=== PATIENT | male | born 1975 | race Two or more races ===

== ENCOUNTER 2019-05-08 10:00 | Outpatient (AMBR) | payer MEDICARE, MEDICAID, SELFPAY ==
--- NOTE | 2019-05-05 08:12 | PT.OIERPT ---
PT OP Initial Eval Patient Information Visit Reasons: left shoulder pain Medical Diagnosis: M25.512 Treatment Dx #1: Left Shoulder Pain Treatment Dx #2: Left Shoulder Weakness Start of Care: 05/05/19 Date of Onset: 04/21/18 Initial Assessment Subjective Pt is a 44 y/o male c/o chronic left shoulder pain (810) since his shoulder replacement 04/21/18. Pt has been to physical therapy previously, however, unable to complete due to attending rehab facility. Pt still has limitation with overhead motions, lifting, self care, reaching to the side, reaching behind back, cooking, cleaning, and performing recreational activities. 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 Pt will attempt physical therapy if pain persist Pt will be refer back to PCP. Short Term and Senior Living Goals 1) Increase left shoulder flexion AROM to 150 deg in 3 wks to be able to perform overhead motions 2) Increase left shoulder MMTs grossly to 3+/5 in 3 wks to be able to perform self care activities 3) Increase left scapula MMTs grossly to 3+/5 in 3 wks to be able to perform lifting activities 4) Decrease shoulder pain to 2/10 in 3 wks to be able to perform recreational activities 5) Indep with HEP Treatment Plan 1) Manual Therapy 2) Therapeutic Activities 3) Therapeutic Exercises 4) Modalities (ice, heat) Frequency and Duration 2 x wk for 3 wks Certification Dates: 05/05/19 to 08/03/19 Office Procedures PT Procedures PT Date of Service: 05/05/19 OP PT Eval Mod Complex 30 minutes: Yes
--- NOTE | 2019-05-08 11:43 | PT.ODAYNRPT ---
PT Outpatient Daily Note Date of Service: May 08, 2019 OP Daily Note Visit Reasons: left shoulder pain Outpatient Physical Therapy Treatment Date: 05/08/19 Subjective: pt states his shoulder is in pain but tolerable. pt is leaving to [place] for a few weeks but plans on returning to PT. Objective: see flow sheet. Assessment: pt demonstrated good mobility of the shoulder although he has pain. the exercises did not seem to bother him as he did not c/o increased pain. observed L UT elevation with shoulder flexion as he compensates to increase ROM. he has OH motion during pulleys with good pace indicating little to no pain. Plan: continue POC per PT. Length of Time (minutes) of Treatment: 30 Minutes ORACLE EBS CONSULTANT Service Modifier Method I: Divide the number of min of care provided by the ORACLE EBS CONSULTANT/MOHAN by the total min of care provided then multiply by 100. If greater than 11 percent modifier is required. Method II: Divide the total time of care provided to patient by 10 (round to the nearest whole number) and add 1 min. to set the minimum time requirement. If treatment total was 60 min., then 10% of 6 min Did ORACLE EBS CONSULTANT provide more than 10% of the care?: Yes PT CQ modifier applied: CQ Modifier applied Office Procedures PT Procedures PT Date of Service: 05/05/19 OP PT Eval Mod Complex 30 minutes: Yes PT Procedures PT Date of Service: 05/08/19 Therapeutic Exercise 30 minutes: Yes
== END 2019-05-09 23:59 | disposition home or self-care (01) ==
PROVIDERS: PCP Family Medicine; Referring Provider Family Medicine; Visit Provider Physician Assistant
DX: Z47.1 Aftercare following joint replacement surgery (principal); Z96.612 Presence of left artificial shoulder joint; M25.512 Pain in left shoulder; R53.1 Weakness; G89.29 Other chronic pain
CPT/HCPCS: 97110; 97162

== ENCOUNTER 2019-08-04 09:41 | Outpatient (AMBR) | payer MEDICARE, MEDICAID, SELFPAY ==
--- NOTE | 2019-08-04 15:13 | PTNOTE_ITS ---
PT OP Initial Eval Patient Information Visit Reasons: post op right shoulder Medical Diagnosis: Right Shoulder Pain; Right Shoulder Replacement Treatment Dx #1: Right Shoulder Mobility Deficits Treatment Dx #2: Right Shoulder Weakness Start of Care: 08/04/19 Date of Onset: 07/17/19 Initial Assessment Subjective Pt is a 44 y/o male s/p right shoulder replacement 07/17/19 secondary to OA. Pt still has pain (8/10) with all activities. Pt has limitation with overhead motions, lifting, chores, self care, dressing, cooking, cleaning, and performing recreational activities. Pt further stated that since his shoulder surgery he develop rashes around his face. Pt's PCP is aware of the rash and has given him medication as treatment. Objective Right Shoulder AROM Flexion: 60 deg Abduction: 45 deg ER and IR: unable Right Shoulder PROM Flexion: 90 deg Abduction: 90 deg ER and IR: unable due to pain Right Shoulder MMTs: grossly 3-/5 Right Scapula MMTs: grossly 3-/5 Assessment Pt demonstrate right shoulder mobility and strength deficits s/p shoulder replacement surgery leading to decline function. Pt will benefit from physical therapy to increase strength, mobility, and work on ROM. Short Term and Forensic Dna Analyst Goals 1) Increase right shoulder AROM WFL in 12 wks to be able to perform overhead motions 2) Increase right shoulder MMTs grossly to 4-/5 in 12 wks to be able to perform self care activities 3) Increase right scapula MMTs grossly to 3+/5 in 12 wks to be able to perform chores 4) Decrease shoulder pain to 2/10 in 12 wks to be able to ride his bike 5) Indep with HEP Treatment Plan 1) Manual Therapy 2) Therapeutic Activities 3) Therapeutic Exercises 4) Modalities (ice, heat) Frequency and Duration 2 x wk for 12 wks Certification Dates: 08/04/19 to 11/04/19 Office Procedures PT Procedures PT Date of Service: 08/04/19 OP PT Eval Mod Complex 30 minutes: Yes
--- NOTE | 2019-08-06 08:37 | PT.ODAYNRPT ---
PT Outpatient Daily Note Date of Service: 08/06/19 OP Daily Note Visit Reasons: post op right shoulder Outpatient Physical Therapy Treatment Date: 08/06/19 Subjective: Pt's shoulder is sore and tender. Pt still has limitation with self care activities Objective: Please see flow chart for list of ther ex performed Assessment: tolerate exercises cue to ensure patient to count correct reps Plan: Continue with PT Length of Time (minutes) of Treatment: 30 Minutes Office Procedures PT Procedures PT Date of Service: 08/04/19 OP PT Eval Mod Complex 30 minutes: Yes PT Procedures PT Date of Service: 08/06/19 Therapeutic Exercise 30 minutes: Yes
== END 2019-08-09 23:59 | disposition home or self-care (01) ==
PROVIDERS: Referring Provider Physician Assistant; Visit Provider Orthopaedic Surgery Sports Medicine
DX: Z47.1 Aftercare following joint replacement surgery (principal); Z96.611 Presence of right artificial shoulder joint; R53.1 Weakness; M25.511 Pain in right shoulder
CPT/HCPCS: 97110; 97162

== ENCOUNTER 2019-10-15 07:59 | Outpatient (AMBR) | payer MEDICARE, MEDICAID, SELFPAY ==
--- NOTE | 2019-10-15 11:05 | PTNOTE_ITS ---
PT OP Progress/Discharge Note Date of Service: 10/15/19 Progress Note/DC Note Progress Note/Discharge Note: Progress Note Patient Information Visit Reasons: POST OP Medical Diagnosis: Right Shoulder Pain; Right Shoulder Replacement Treatment Dx #1: Right Shoulder Mobility Deficits Treatment Dx #2: Right Shoulder Weakness Service Continue Service or Discharge: Continue Service Certification Date Certification Dates: 10/15/19 to 01/15/20 Status Subjective: Pt mention that his shoulder still hurts but movement is a little b hannah. Pt notice that self care, dressing, light lifting, and performing chores is getting easier. Pt still has difficulty with reaching, overhead motions, and performing recreational activities. Objective: Right Shoulder AROM Flexion: 110 deg Abduction: 80 deg ER and IR: NT Right Shoulder PROM Flexion: 120 deg Abduction: 110 deg ER and IR: NT Right Shoulder MMTs: grossly 3/5 Right Scapula MMTs: grossly 3/5 Assessment: Pt continues to progress slowly towards goals and increase AROM each week. Pt educated that pain will decrease overall time due to implant placement within the shoulder and it will take take to heal. Pt gave verbal consent. Pt still limited in ER and IR motions due to pain and limited in stretching due to excessive guarding. Pt's slow progression in therapy also relate to inconsistent attendance. Pt has not met set goals and will continue to benefit from physical therapy, thank you for your referrals. Plan: Continue with PT Office Procedures PT Procedures PT Date of Service: 10/15/19 Therapeutic Exercise 30 minutes: Yes
--- NOTE | 2019-10-22 10:36 | PT.ODAYNRPT ---
PT Outpatient Daily Note Date of Service: 10/22/19 OP Daily Note Visit Reasons: POST OP Outpatient Physical Therapy Treatment Date: 10/22/19 Subjective: Pt mention that his shoulder is a little better. Pt can reach up to shoulder height with less limitation Objective: Please see flow chart for list of ther ex performed Assessment: tolerate exercises with minimal pain Plan: Continue with PT Length of Time (minutes) of Treatment: 30 Minutes Office Procedures PT Procedures PT Date of Service: 10/15/19 Therapeutic Exercise 30 minutes: Yes PT Procedures PT Date of Service: 10/22/19 Therapeutic Exercise 30 minutes: Yes
--- NOTE | 2019-10-27 12:11 | PTNOTE_ITS ---
PT Outpatient Daily Note Date of Service: 10/27/19 OP Daily Note Visit Reasons: POST OP Outpatient Physical Therapy Treatment Date: 10/27/19 Subjective: Pt's shoulder feels the same. Pt still has pain. Pt mention that r eaching forward is getting easier, however, has difficulty reaching to the side. Objective: Please see flow chart for list of ther ex performed Assessment: tolerate exercises with minimal pain; continue to encourage and advised patient that pain is timeframe as well as only 3 months post op which it's normal to still have some form of shoulder pain Plan: Continue with PT Length of Time (minutes) of Treatment: 30 Minutes Office Procedures PT Procedures PT Date of Service: 10/15/19 Therapeutic Exercise 30 minutes: Yes PT Procedures PT Date of Service: 10/27/19 Therapeutic Exercise 30 minutes: Yes PT Procedures PT Date of Service: 10/22/19 Therapeutic Exercise 30 minutes: Yes
--- NOTE | 2019-11-05 10:15 | PT.ODAYNRPT ---
PT Outpatient Daily Note Date of Service: 11/05/19 OP Daily Note Visit Reasons: POST OP Outpatient Physical Therapy Treatment Date: 11/05/19 Subjective: Pt is doing better. Pt notice there's less pain and he can reach to grab light objects Objective: Please see flow chart for list of ther ex performed Assessment: tolerate exercises with minimal pain; improved AROM up to 90 deg of flexion and abduction noted with less pain Plan: Continue with PT Length of Time (minutes) of Treatment: 30 Minutes Office Procedures PT Procedures PT Date of Service: 10/15/19 Therapeutic Exercise 30 minutes: Yes PT Procedures PT Date of Service: 10/27/19 Therapeutic Exercise 30 minutes: Yes PT Procedures PT Date of Service: 11/05/19 Therapeutic Exercise 30 minutes: Yes PT Procedures PT Date of Service: 10/22/19 Therapeutic Exercise 30 minutes: Yes
== END 2019-11-09 23:59 | disposition home or self-care (01) ==
PROVIDERS: Visit Provider Orthopaedic Surgery Sports Medicine
DX: Z47.1 Aftercare following joint replacement surgery (principal); Z96.611 Presence of right artificial shoulder joint; M25.511 Pain in right shoulder; R53.1 Weakness
CPT/HCPCS: 97110

== ENCOUNTER 2019-11-13 07:57 | Outpatient (AMBR) | payer MEDICARE, MEDICAID, SELFPAY ==
--- NOTE | 2019-11-13 08:42 | PTNOTE_ITS ---
PT Outpatient Daily Note Date of Service: 11/13/2019 OP Daily Note Visit Reasons: post op Outpatient Physical Therapy Treatment Date: 11/13/19 Subjective: pt doing well today as he says his shoulder is getting better. Objective: see flow sheet. Assessment: for the shoulder rows he is doing single arm in which he is able to keep his posture without compensating. his R scap retracts just slightly. his ROM of flexion is about 100 degrees with observation during exercises. no complaints of pain or discomfort during treatment. Plan: continue POC per PT. Length of Time (minutes) of Treatment: 30 Minutes TURNER OFF Service Modifier Method I: Divide the number of min of care provided by the TURNER OFF/HOUSEKEEPING SUPERVISOR by the total min of care provided then multiply by 100. If greater than 11 percent modifier is required. Method II: Divide the total time of care provided to patient by 10 (round to the nearest whole number) and add 1 min. to set the minimum time requirement. If treatment total was 60 min., then 10% of 6 min Did TURNER OFF provide more than 10% of the care?: Yes PT CQ modifier applied: CQ Modifier applied Office Procedures PT Procedures PT Date of Service: 11/13/19 Therapeutic Exercise 30 minutes: Yes
--- NOTE | 2019-11-19 14:42 | PT.ODS1RPT ---
PT OP Progress/Discharge Note Date of Service: 11/19/19 Progress Note/DC Note Progress Note/Discharge Note: DC Note Patient Information Visit Reasons: post op Medical Diagnosis: Right Shoulder Pain; Right Shoulder Replacement Treatment Dx #1: Right Shoulder Mobility Deficits Treatment Dx #2: Right Shoulder Weakness Service Continue Service or Discharge: Discharge Discharge Date: 11/19/19 Status Subjective: Pt's shoulder is doing much better. Pt stated that he can perform self care, chores, lift, and perform overhead motions with less limitation. At this time Pt feels comfortable being release from PT with exercises to continue at home. Objective: Right Shoulder AROM Flexion: 120 deg Abduction: 100 deg External Rotation: 60 deg Internal Rotation: 50 deg Right Shoulder MMTs: grossly 3+/5 Right Scapula MMTs: grossly 3+/5 Assessment: Pt demonstrate functional shoulder mobility and strength allowing him to resume ADLs, overhead motions, chores, and self care with less limitation. Pt will no longer benefit from physical therapy due to plateau towards goals. Pt was instructed on HEP last session and educated to continue exercises to maintain overall mobility. Pt performed all exercises safely, thank you for your referrals. Plan: D/C home with HEP and follow up with MD BRISCOE Office Procedures PT Procedures PT Date of Service: 11/13/19 Therapeutic Exercise 30 minutes: Yes PT Procedures PT Date of Service: 11/19/19 Therapeutic Exercise 30 minutes: Yes
== END 2019-12-09 23:59 | disposition home or self-care (01) ==
PROVIDERS: PCP Orthopaedic Surgery Sports Medicine; Referring Provider Orthopaedic Surgery Sports Medicine; Visit Provider Orthopaedic Surgery Sports Medicine
DX: Z47.1 Aftercare following joint replacement surgery (principal); Z96.611 Presence of right artificial shoulder joint; R53.1 Weakness; M25.511 Pain in right shoulder
CPT/HCPCS: 97110

== ENCOUNTER → 2024-01-15 | Outpatient (CLI) | payer MEDICARE, MEDICAID, SELFPAY ==
[2024-01-23 06:22] LABS: Helicobacter pylori Ag, Stool* DETECTED (NOT DETECTED)
== END | disposition home or self-care (01) ==
LOC: SLDO 07:52
PROVIDERS: PCP Nurse Practitioner Family; Referring Provider Nurse Practitioner Family; Visit Provider Nurse Practitioner Family
DX: R14.0 Abdominal distension (gaseous) (principal); R10.9 Unspecified abdominal pain; K21.9 Gastro-esophageal reflux disease without esophagitis; E78.2 Mixed hyperlipidemia
CPT/HCPCS: 87015; 87045; 87046; 87177; 87209; 87338; 87899

== ENCOUNTER → 2024-02-13 | Outpatient (CLI) | payer MEDICARE, MEDICAID, SELFPAY ==
--- NOTE | 2024-02-13 09:15 | XR_ITS ---
Examination: Abdomen sonogram, Limited Date and time of exam: February 13, 2024 0909 hours INDICATIONS: Diagnosis fatty liver one year ago Technique: Real-time bridges scale transabdominal sonographic images of the upper abdomen obtained. Findings: Normal gallbladder Normal common bile duct 0.3 cm Pancreatic head 3.2 cm Liver 16.2 cm fatty infiltration no focal liver lesions Normal hepatopedal portal venous flow Patent IVC IMPRESSION: Mild hepatomegaly, fatty liver
== END | disposition home or self-care (01) ==
LOC: CDIM 08:55
PROVIDERS: Referring Provider Specialist; Visit Provider Specialist
DX: K76.0 Fatty (change of) liver, not elsewhere classified (principal)
CPT/HCPCS: 76705

== ENCOUNTER 2024-02-26 09:35 | Day surgery (SDC) | payer MEDICARE, MEDICAID, SELFPAY ==
[2024-02-26] VITALS (7 sets, daily range): BP systolic 110–128; BP diastolic 77–92; PULSE 76–84; RESP 14–27; TEMP 36.6–36.8; O2SAT 92–98; BMI 29.0
[2024-02-26] MEDS: DiphenhydrAMINE INJ 50 MG/ML VIAL 25 MG IV (11:38)
[2024-02-26] MEDS: fentaNYL CIT INJ 50 mCg/ML AMP 2ML (ASD USE ONLY) IV (11:41)
[2024-02-26] MEDS: MIDAZOLAM INJ 1 MG/ML VIAL 2 ML (ASD USE ONLY) 2 MG IV (11:41)
[2024-02-26] MEDS: BENZOCAINE 20% (Hurricaine) SPRAY 1 DOSE TOP (11:42)
--- NOTE | 2024-02-26 13:04 | SUR.PHASEII ---
1151: Pt received in recovery. Report from Silvia DIAZ. Pt groggy, but awake. Resp even, unlabored. VS stable. Denies pain, discomfort. 1220: Pt more awake, alert. VS stable. Denies pain. Sitting up tolerating po fluids with no difficulty swallowing and no n/v.
--- NOTE | 2024-02-26 13:06 | SUR.PHASEII ---
1230: Pt fully awake, oriented x3. Pt was assisted to restroom. Ambulation steady. Pt and mother stated understanding of discharge instructions. Pt discharged from [facility] in stable condition.
== END 2024-02-26 12:30 | disposition home or self-care (01) ==
PROVIDERS: PCP Student in an Organized Health Care Education/Training Program; Referring Provider Specialist; Visit Provider Specialist
PROC: (CPT 43239; principal; 2024-02-26 09:45)
DX: K20.91 Esophagitis, unspecified with bleeding (principal); K29.61 Other gastritis with bleeding
CPT/HCPCS: 43239; J1200; J2250; J3010; A9270

== ENCOUNTER → 2024-04-07 | Outpatient (CLI) | payer MEDICARE, MEDICAID, SELFPAY ==
[2024-04-07 14:40] LABS: Urea Breath Test Negative (Negative)
== END | disposition home or self-care (01) ==
LOC: COPL 11:06
PROVIDERS: PCP Nurse Practitioner Family; Referring Provider Nurse Practitioner Family; Visit Provider Nurse Practitioner Family
DX: R10.9 Unspecified abdominal pain (principal); B96.81 Helicobacter pylori [H. pylori] as the cause of diseases classified elsewhere; K21.9 Gastro-esophageal reflux disease without esophagitis
CPT/HCPCS: 83013; 83014

== ENCOUNTER → 2024-08-05 | Outpatient (CLI) | payer MEDICARE, MEDICAID, SELFPAY ==
[2024-08-05 11:08] LABS: Collection Type, Urine Clean Catch; Squamous Epithelial Cell,Urine 0 /hpf (0-5)
[2024-08-05 11:29] LABS: Basophils # (Auto) 0.1 Thou/mm3 (0.0-0.2); Basophils % (Auto) 1 % (0-2.5); Eosinophils # (Auto) 0.2 Thou/mm3 (0.0-0.5); Eosinophils % (Auto) 2 % (0-10); Hematocrit 44.7 % (41.0-53.0); Hemoglobin 15.7 g/dL (13.5-16.0); Immature Granulocytes % (Auto) 0 % (0-0); Immature Granulocytes Auto 0.03 Thou/mm3 (0.00-0.00); Lymphocytes # (Auto) 1.8 Thou/mm3 (1.0-4.8); Lymphocytes % (Auto) 25 % (10-50); Mean Corpuscular HGB Conc 35.1 g/dl (31.0-37.0); Mean Corpuscular Hemoglobin 32.5 pg (25.0-35.0); Mean Corpuscular Volume 93 fL (80-100); Monocytes # (Auto) 0.6 Thou/mm3 (0.0-0.8); Monocytes % (Auto) 9 % (0-12); Neutrophils # (Auto) 4.5 Thou/mm3 (1.8-7.7); Neutrophils % (Auto) 63 % (37-80); Nucleated Red Blood Cell % 0 /100 WBC (0); Platelet Count 217 Thou/mm3 (140-440); RDW Standard Deviation 43.8 fL (35.1-43.9); Red Blood Count 4.83 Miln/mm3 (4.50-5.90); White Blood Count 7.1 Thou/mm3 (3.8-10.6)
[2024-08-05 11:40] LABS: Bilirubin,Urine Negative (Negative); Blood,Urine 1+ (Negative); Clarity,Urine Clear (Clear/Hazy); Color,Urine Lt-Yellow (Lt Yel-Yel); Glucose, Urine Negative (Negative); Ketones,Urine Negative (Negative); Leukocyte Esterase,Urine Negative (Negative); Nitrite,Urine Negative (Negative); Protein,Urine Negative (Neg - Trace); RBC,Urine 4 /hpf (0-3); Specific Gravity,Urine 1.024 (1.001-1.035); Urobilinogen,Urine Negative mg/dL (0.0-1.0); WBC,Urine < 1 /hpf (0-5)
[2024-08-05 11:41] LABS: Glucose Estimated Average 114 mg/dL (80-131); Hemoglobin A1C 5.6 % Hgb (4.8-6.0)
[2024-08-05 11:51] LABS: Creatinine MALB Rnd Ur 183 mg/dL (30-125); Microalbumin Creat Ratio 2 mg/gCrea (<30); Microalbumin, Random Urine 3 mg/L (0-300)
[2024-08-05 11:52] LABS: Alanine Aminotransferase 40 U/L (10-49); Albumin, Serum 4.3 gm/dL (3.5-5.0); Albumin/Globulin Ratio 1.7 (1.2-2.2); Alkaline Phosphatase 69 U/L (46-116); Anion Gap 11 (7-16); Aspartate Amino Transferase 114 U/L (0-34); BUN/Creatinine Ratio 8 Ratio (12-20); Bilirubin,Total 0.4 mg/dL (0.3-1.2); Blood Urea Nitrogen 9 mg/dL (9-23); Calcium 8.4 mg/dL (8.3-10.6); Calcium (Corrected) 8.4 mg/dL (8.5-10.1); Carbon Dioxide 24.1 mMol/L (20.0-31.0); Cardiac Risk Estimate 3.8 RATIO (4.0-6.7); Chloride 105 mMol/L (98-107); Cholesterol 187 mg/dL (132-200); Creatinine (Component) 1.1 mg/dL (0.6-1.3); Free T4 (Free Thyroxine) 0.92 ng/dL (0.89-1.76); Globulin 2.6 gm/dL (2.3-3.5); Glucose 104 mg/dL (74-106); HDL Cholesterol 49 mg/dL (40-60); LDL Cholesterol,Calculated 101 mg/dL (0-130); Osmolality,Calculated 278 (275-295); Potassium 4.1 mMol/L (3.4-5.1); Sodium 140 mMol/L (136-145); Total Protein 6.9 gm/dL (5.7-8.2); Triglycerides 184 mg/dL (30-150); eGFR > 60 See Note
[2024-08-05 11:58] LABS: Carcinoembryonic Antigen 1.2 ng/mL (0.0-5.0); Vitamin D 25 Hydroxy Total 33.6 ng/mL (7.3-40.2)
[2024-08-05 12:51] LABS: Urea Breath Test Positive (Negative)
[2024-08-10 07:35] LABS: Direct LDL* 122 mg/dL (<100); Gamma Glutamyl Transpeptidase* 46 U/L (3-95)
== END | disposition home or self-care (01) ==
LOC: COPL 10:22
PROVIDERS: PCP Nurse Practitioner Family; Referring Provider Nurse Practitioner Family; Visit Provider Nurse Practitioner Family
DX: C16.0 Malignant neoplasm of cardia (principal); E55.9 Vitamin D deficiency, unspecified; E78.2 Mixed hyperlipidemia; R10.9 Unspecified abdominal pain; R11.0 Nausea; R63.0 Anorexia; B96.81 Helicobacter pylori [H. pylori] as the cause of diseases classified elsewhere
CPT/HCPCS: 36415; 80053; 80061; 81001; 82043; 82306; 82378; 82570; 82977; 83013; 83014; 83036; 83721; 84439; 84443; 85025

== ENCOUNTER → 2024-08-06 | Outpatient (CLI) | payer MEDICARE, MEDICAID, SELFPAY ==
--- NOTE | 2024-08-06 13:28 | XR_ITS ---
Examination: CT abdomen without intravenous contrast. Coronal 2-D reconstructions. Sagittal 2-D reconstructions. 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 One or more of the following dose reduction techniques were used; automated exposure control, adjustment of the mA and/or KV according to patient size, use of iterative reconstruction technique. Findings: Diffuse fatty infiltration throughout the liver, no focal liver or splenic lesions No gallstones No pancreatic or adrenal mass Mild perinephric stranding No bowel obstruction Normal appendix Advanced degenerative disc disease L5-S1 IMPRESSION: No acute process in the abdomen
== END | disposition home or self-care (01) ==
PROVIDERS: PCP Nurse Practitioner Family; Referring Provider Nurse Practitioner Family; Visit Provider Nurse Practitioner Family
DX: R10.9 Unspecified abdominal pain (principal); R11.0 Nausea
CPT/HCPCS: 74150

== ENCOUNTER → 2024-12-11 | Outpatient (CLI) | payer MEDICARE, MEDICAID, SELFPAY ==
--- NOTE | 2024-12-11 08:21 | XR_ITS ---
Examination: Foot, right, 3 views Technique: AP, oblique, lateral views foot, 3 views Date and time of exam: December 11 2024 0833 hours INDICATIONS: Right foot pain and swelling 2 weeks. FINDINGS: Mild bunion deformity. Mild narrowing first metatarsophalangeal joint. No fracture. No cortical bone destruction 2 mm plantar bony calcaneal spur. Mild osteoarthritis tibiotalar and intertarsal joints as well as first metatarsophalangeal joint IMPRESSION: Mild osteoarthritis No erosive arthritis
--- NOTE | 2024-12-11 08:21 | XR_ITS ---
EXAMINATION: Ankle, right 3 views . Technique: Ankle AP, oblique, lateral 3 views Date and time of exam: December 11, 2024, 0833 hours INDICATIONS: Right ankle swelling beginning 2 weeks ago. FINDINGS: No fracture or dislocation. No cortical bone destruction No foreign body Mild narrowing tibiotalar joint 2 mm plantar bony calcaneal spur Mild osteoarthritis intertarsal joints IMPRESSION: Mild osteoarthritis
== END | disposition home or self-care (01) ==
LOC: CDIM 08:15
PROVIDERS: PCP Nurse Practitioner Family; Referring Provider Nurse Practitioner Family; Visit Provider Nurse Practitioner Family
DX: M19.071 Primary osteoarthritis, right ankle and foot (principal)
CPT/HCPCS: 73610; 73630